=== PATIENT | male | born 1955 | race Caucasian/White ===

== ENCOUNTER → 2023-12-05 13:51 | Outpatient (REF) | payer OTHER, SELFPAY ==
[2023-12-05 14:51] LABS: INR 2.83; PT 29.7 Sec (11.4-14.6)
== END ==
LOC: REG 13:51
PROVIDERS: ATTENDING PHYSICIAN Internal Medicine Cardiovascular Disease; FAMILY PHYSICIAN Physician Assistant
DX: Z95.2 Presence of prosthetic heart valve (principal)
CPT/HCPCS: 36415; 85610

== ENCOUNTER → 2024-01-03 08:50 | Outpatient (REF) | payer OTHER, SELFPAY ==
[2024-01-03 10:21] LABS: INR 3.85; PT 37.9 Sec (11.4-14.6)
== END ==
LOC: REG 08:50
PROVIDERS: ATTENDING PHYSICIAN Internal Medicine Cardiovascular Disease; FAMILY PHYSICIAN Physician Assistant
DX: Z95.2 Presence of prosthetic heart valve (principal)
CPT/HCPCS: 36415; 85610

== ENCOUNTER → 2024-01-11 10:45 | Outpatient (REF) | payer OTHER, SELFPAY ==
[2024-01-11 11:34] LABS: INR 4.44; PT 43.1 Sec (11.4-14.6)
== END ==
LOC: REG 10:45
PROVIDERS: ATTENDING PHYSICIAN Internal Medicine Cardiovascular Disease; FAMILY PHYSICIAN Physician Assistant
DX: Z95.2 Presence of prosthetic heart valve (principal)
CPT/HCPCS: 36415; 85610

== ENCOUNTER → 2024-01-19 08:28 | Outpatient (REF) | payer OTHER, SELFPAY ==
[2024-01-19 09:35] LABS: INR 4.11; PT 40.5 Sec (11.4-14.6)
== END ==
LOC: REG 08:28
PROVIDERS: ATTENDING PHYSICIAN Internal Medicine Cardiovascular Disease; FAMILY PHYSICIAN Physician Assistant
DX: Z95.2 Presence of prosthetic heart valve (principal)
CPT/HCPCS: 36415; 85610

== ENCOUNTER → 2024-01-26 11:00 | Outpatient (REF) | payer OTHER, SELFPAY ==
[2024-01-26 11:37] LABS: INR 4.07; PT 40.3 Sec (11.4-14.6)
== END ==
LOC: REG 11:00
PROVIDERS: ATTENDING PHYSICIAN Internal Medicine Cardiovascular Disease; FAMILY PHYSICIAN Physician Assistant
DX: Z95.2 Presence of prosthetic heart valve (principal)
CPT/HCPCS: 36415; 85610

== ENCOUNTER → 2024-02-02 09:16 | Outpatient (REF) | payer OTHER, SELFPAY ==
[2024-02-02 12:14] LABS: INR 2.67; PT 28.8 Sec (11.4-14.6)
== END ==
LOC: REG 09:16
PROVIDERS: ATTENDING PHYSICIAN Internal Medicine Cardiovascular Disease; FAMILY PHYSICIAN Physician Assistant
DX: Z95.2 Presence of prosthetic heart valve (principal)
CPT/HCPCS: 36415; 85610

== ENCOUNTER → 2024-02-13 10:49 | Outpatient (REF) | payer OTHER, SELFPAY ==
[2024-02-13 12:34] LABS: INR 1.87; PT 21.3 Sec (11.4-14.6)
== END ==
LOC: REG 10:49
PROVIDERS: ATTENDING PHYSICIAN Internal Medicine Cardiovascular Disease; FAMILY PHYSICIAN Physician Assistant
DX: Z95.2 Presence of prosthetic heart valve (principal)
CPT/HCPCS: 36415; 85610

== ENCOUNTER → 2024-02-22 10:28 | Outpatient (REF) | payer OTHER, SELFPAY ==
[2024-02-22 11:56] LABS: INR 3.86; PT 38.5 Sec (11.4-14.6)
== END ==
LOC: REG 10:28
PROVIDERS: ATTENDING PHYSICIAN Internal Medicine Cardiovascular Disease; FAMILY PHYSICIAN Physician Assistant
DX: Z95.2 Presence of prosthetic heart valve (principal)
CPT/HCPCS: 36415; 85610

== ENCOUNTER → 2024-03-05 12:41 | Outpatient (REF) | payer OTHER, SELFPAY ==
[2024-03-05 13:54] LABS: INR 2.76; PT 29.1 Sec (11.4-14.6)
== END ==
LOC: REG 12:41
PROVIDERS: ATTENDING PHYSICIAN Internal Medicine Cardiovascular Disease
DX: Z95.2 Presence of prosthetic heart valve (principal); Z79.01 Long term (current) use of anticoagulants
CPT/HCPCS: 36415; 85610

== ENCOUNTER → 2024-03-16 09:35 | Outpatient (REF) | payer OTHER, SELFPAY ==
[2024-03-16 11:11] LABS: INR 4.07; PT 39.6 Sec (11.4-14.6)
== END ==
LOC: REG 09:35
PROVIDERS: ATTENDING PHYSICIAN Internal Medicine Cardiovascular Disease; FAMILY PHYSICIAN Physician Assistant
DX: Z95.2 Presence of prosthetic heart valve (principal)
CPT/HCPCS: 36415; 85610

== ENCOUNTER → 2024-03-22 08:34 | Outpatient (REF) | payer OTHER, SELFPAY ==
[2024-03-22 10:24] LABS: INR 2.38; PT 25.9 Sec (11.4-14.6)
== END ==
LOC: REG 08:34
PROVIDERS: ATTENDING PHYSICIAN Internal Medicine Cardiovascular Disease; FAMILY PHYSICIAN Physician Assistant
DX: Z95.2 Presence of prosthetic heart valve (principal)
CPT/HCPCS: 36415; 85610

== ENCOUNTER → 2024-03-29 11:43 | Outpatient (REF) | payer OTHER, SELFPAY ==
[2024-03-29 12:20] LABS: INR 3.32; PT 34.2 Sec (11.4-14.6)
== END ==
LOC: REG 11:43
PROVIDERS: ATTENDING PHYSICIAN Internal Medicine Cardiovascular Disease; FAMILY PHYSICIAN Physician Assistant
DX: Z95.2 Presence of prosthetic heart valve (principal)
CPT/HCPCS: 36415; 85610

== ENCOUNTER → 2024-04-09 10:39 | Outpatient (REF) | payer OTHER, SELFPAY ==
[2024-04-09 13:23] LABS: INR 2.83; PT 29.7 Sec (11.4-14.6)
== END ==
LOC: REG 10:39
PROVIDERS: ATTENDING PHYSICIAN Internal Medicine Cardiovascular Disease; FAMILY PHYSICIAN Physician Assistant
DX: Z95.2 Presence of prosthetic heart valve (principal)
CPT/HCPCS: 36415; 85610

== ENCOUNTER → 2024-04-23 13:23 | Outpatient (REF) | payer OTHER, SELFPAY ==
[2024-04-23 13:53] LABS: INR 3.09; PT 31.8 Sec (11.4-14.6)
== END ==
LOC: REG 13:23
PROVIDERS: ATTENDING PHYSICIAN Internal Medicine Cardiovascular Disease; FAMILY PHYSICIAN Physician Assistant
DX: Z95.2 Presence of prosthetic heart valve (principal)
CPT/HCPCS: 36415; 85610

== ENCOUNTER → 2024-05-08 09:39 | Outpatient (REF) | payer OTHER, SELFPAY ==
[2024-05-08 10:54] LABS: INR 2.73; PT 28.8 Sec (11.4-14.6)
== END ==
LOC: REG 09:39
PROVIDERS: ATTENDING PHYSICIAN Internal Medicine Cardiovascular Disease; FAMILY PHYSICIAN Physician Assistant
DX: Z95.2 Presence of prosthetic heart valve (principal)
CPT/HCPCS: 36415; 85610

== ENCOUNTER → 2024-06-05 09:43 | Outpatient (REF) | payer OTHER, SELFPAY ==
[2024-06-05 11:11] LABS: INR 1.76; PT 20.3 Sec (11.4-14.6)
== END ==
LOC: REG 09:43
PROVIDERS: ATTENDING PHYSICIAN Internal Medicine Cardiovascular Disease; FAMILY PHYSICIAN Physician Assistant
DX: Z95.2 Presence of prosthetic heart valve (principal)
CPT/HCPCS: 36415; 85610

== ENCOUNTER → 2024-06-15 08:40 | Outpatient (REF) | payer OTHER, SELFPAY ==
[2024-06-15 10:00] LABS: INR 2.98; PT 30.9 Sec (11.4-14.6)
== END ==
LOC: REG 08:40
PROVIDERS: ATTENDING PHYSICIAN Internal Medicine Cardiovascular Disease
DX: Z95.2 Presence of prosthetic heart valve (principal)
CPT/HCPCS: 36415; 85610

== ENCOUNTER → 2024-06-22 13:10 | Outpatient (REF) | payer OTHER, SELFPAY ==
[2024-06-22 14:17] LABS: INR 4.24; PT 40.9 Sec (11.4-14.6)
== END ==
LOC: REG 13:10
PROVIDERS: ATTENDING PHYSICIAN Internal Medicine Cardiovascular Disease; FAMILY PHYSICIAN Physician Assistant
DX: Z95.2 Presence of prosthetic heart valve (principal)
CPT/HCPCS: 36415; 85610

== ENCOUNTER → 2024-06-29 10:08 | Outpatient (REF) | payer OTHER, SELFPAY ==
[2024-06-29 10:40] LABS: INR 4.27; PT 41.1 Sec (11.4-14.6)
== END ==
LOC: REG 10:08
PROVIDERS: ATTENDING PHYSICIAN Internal Medicine Cardiovascular Disease; FAMILY PHYSICIAN Physician Assistant
DX: Z95.2 Presence of prosthetic heart valve (principal)
CPT/HCPCS: 36415; 85610

== ENCOUNTER → 2024-07-05 13:36 | Outpatient (REF) | payer OTHER, SELFPAY ==
[2024-07-05 14:31] LABS: INR 3.25; PT 33.6 Sec (11.4-14.6)
== END ==
LOC: REG 13:36
PROVIDERS: ATTENDING PHYSICIAN Internal Medicine Cardiovascular Disease
DX: Z95.2 Presence of prosthetic heart valve (principal)
CPT/HCPCS: 36415; 85610

== ENCOUNTER → 2024-07-13 08:27 | Outpatient (REF) | payer OTHER, SELFPAY ==
[2024-07-13 09:22] LABS: INR 4.23; PT 40.8 Sec (11.4-14.6)
== END ==
LOC: REG 08:27
PROVIDERS: ATTENDING PHYSICIAN Internal Medicine Cardiovascular Disease; FAMILY PHYSICIAN Physician Assistant
DX: Z95.2 Presence of prosthetic heart valve (principal)
CPT/HCPCS: 36415; 85610

== ENCOUNTER → 2024-07-23 09:37 | Outpatient (REF) | payer OTHER, SELFPAY ==
[2024-07-23 10:22] LABS: INR 2.89; PT 30.2 Sec (11.4-14.6)
== END ==
LOC: REG 09:37
PROVIDERS: ATTENDING PHYSICIAN Internal Medicine Cardiovascular Disease; FAMILY PHYSICIAN Physician Assistant
DX: Z95.2 Presence of prosthetic heart valve (principal)
CPT/HCPCS: 36415; 85610

== ENCOUNTER → 2024-07-30 09:14 | Outpatient (REF) | payer OTHER, SELFPAY ==
[2024-07-30 10:22] LABS: INR 4.06; PT 39.5 Sec (11.4-14.6)
== END ==
LOC: REG 09:14
PROVIDERS: ATTENDING PHYSICIAN Internal Medicine Cardiovascular Disease; FAMILY PHYSICIAN Physician Assistant
DX: Z95.2 Presence of prosthetic heart valve (principal)
CPT/HCPCS: 36415; 85610

== ENCOUNTER → 2024-08-03 08:49 | Outpatient (REF) | payer OTHER, SELFPAY ==
[2024-08-03 09:44] LABS: INR 4.54; PT 43.2 Sec (11.4-14.6)
== END ==
LOC: REG 08:49
PROVIDERS: ATTENDING PHYSICIAN Internal Medicine Cardiovascular Disease; FAMILY PHYSICIAN Physician Assistant
DX: Z95.2 Presence of prosthetic heart valve (principal)
CPT/HCPCS: 36415; 85610

== ENCOUNTER → 2024-08-11 09:26 | Outpatient (REF) | payer OTHER, SELFPAY ==
[2024-08-11 10:44] LABS: PT 33.6 Sec (11.4-14.6)
== END ==
LOC: REG 09:26
PROVIDERS: ATTENDING PHYSICIAN Internal Medicine Cardiovascular Disease; FAMILY PHYSICIAN Physician Assistant
DX: Z95.2 Presence of prosthetic heart valve (principal)
CPT/HCPCS: 36415; 85610

== ENCOUNTER → 2024-08-17 09:18 | Outpatient (REF) | payer OTHER, SELFPAY ==
[2024-08-17 10:20] LABS: INR 2.36; PT 25.7 Sec (11.4-14.6)
== END ==
LOC: REG 09:18
PROVIDERS: ATTENDING PHYSICIAN Internal Medicine Cardiovascular Disease; FAMILY PHYSICIAN Physician Assistant
DX: Z95.2 Presence of prosthetic heart valve (principal)
CPT/HCPCS: 36415; 85610

== ENCOUNTER → 2024-08-25 08:45 | Outpatient (REF) | payer OTHER, SELFPAY | LOC: REG 08:45 | PROVIDERS: ATTENDING PHYSICIAN Internal Medicine Cardiovascular Disease; FAMILY PHYSICIAN Physician Assistant | DX: Z95.2 Presence of prosthetic heart valve (principal) | CPT/HCPCS: 36415; 85610 ==

== ENCOUNTER → 2024-09-05 09:00 | Outpatient (REF) | payer OTHER, SELFPAY ==
[2024-09-05 11:05] LABS: INR 2.34; PT 26.1 Sec (11.4-14.6)
== END ==
LOC: REG 09:00
PROVIDERS: ATTENDING PHYSICIAN Internal Medicine Cardiovascular Disease
DX: Z95.2 Presence of prosthetic heart valve (principal)
CPT/HCPCS: 36415; 85610

== ENCOUNTER → 2024-09-13 10:02 | Outpatient (REF) | payer OTHER, SELFPAY ==
[2024-09-13 12:44] LABS: INR 2.45
== END ==
LOC: REG 10:02
PROVIDERS: ATTENDING PHYSICIAN Internal Medicine Cardiovascular Disease; FAMILY PHYSICIAN Physician Assistant
DX: Z95.2 Presence of prosthetic heart valve (principal)
CPT/HCPCS: 36415; 85610

== ENCOUNTER → 2024-09-24 10:53 | Outpatient (REF) | payer OTHER, SELFPAY ==
[2024-09-24 12:45] LABS: INR 2.81; PT 29.5 Sec (11.4-14.6)
== END ==
LOC: REG 10:53
PROVIDERS: ATTENDING PHYSICIAN Internal Medicine Cardiovascular Disease; FAMILY PHYSICIAN Physician Assistant
DX: Z95.2 Presence of prosthetic heart valve (principal)
CPT/HCPCS: 36415; 85610

== ENCOUNTER → 2024-10-03 10:19 | Outpatient (REF) | payer OTHER, SELFPAY ==
[2024-10-03 11:29] LABS: INR 3.05; PT 31.9 Sec (11.4-14.6)
== END ==
LOC: REG 10:19
PROVIDERS: ATTENDING PHYSICIAN Internal Medicine Cardiovascular Disease; FAMILY PHYSICIAN Physician Assistant
DX: Z95.2 Presence of prosthetic heart valve (principal)
CPT/HCPCS: 36415; 85610

== ENCOUNTER → 2024-10-12 10:43 | Outpatient (REF) | payer OTHER, SELFPAY ==
[2024-10-12 12:07] LABS: INR 2.73; PT 28.9 Sec (11.4-14.6)
== END ==
LOC: REG 10:43
PROVIDERS: ATTENDING PHYSICIAN Student in an Organized Health Care Education/Training Program
DX: Z95.2 Presence of prosthetic heart valve (principal)
CPT/HCPCS: 36415; 85610

== ENCOUNTER → 2024-10-20 09:25 | Outpatient (REF) | payer OTHER, SELFPAY ==
[2024-10-20 10:52] LABS: INR 3.39; PT 34.5 Sec (11.4-14.6)
== END ==
LOC: REG 09:25
PROVIDERS: ATTENDING PHYSICIAN Student in an Organized Health Care Education/Training Program; FAMILY PHYSICIAN Physician Assistant
DX: Z79.01 Long term (current) use of anticoagulants (principal)
CPT/HCPCS: 36415; 85610

== ENCOUNTER → 2024-10-26 13:02 | Outpatient (REF) | payer OTHER, SELFPAY ==
[2024-10-26 15:09] LABS: INR 2.37; PT 25.9 Sec (11.4-14.6)
== END ==
LOC: REG 13:02
PROVIDERS: ATTENDING PHYSICIAN Student in an Organized Health Care Education/Training Program; FAMILY PHYSICIAN Physician Assistant
DX: Z79.01 Long term (current) use of anticoagulants (principal)
CPT/HCPCS: 36415; 85610

== ENCOUNTER → 2024-11-02 12:00 | Outpatient (REF) | payer OTHER, SELFPAY ==
[2024-11-02 13:04] LABS: % Basophils 0.9 % (0-2); % Eosinophils 2.6 % (0-6); % Immature Granulocytes 0.3 % (0-0.5); % Lymphocytes 22.2 % (20.5-51.1); % Monocytes 6.9 % (1.7-9.3); % Neutrophils 67.1 % (42.2-75.2); Absolute Basophils 0.1 10^3/uL (0-0.2); Absolute Eosinophils 0.2 10^3/uL (0-0.7); Absolute Lymphocytes 1.3 10^3/uL (1.2-3.4); Absolute Monocytes 0.4 10^3/uL (0.1-0.6); Absolute Neutrophils 3.9 10^3/uL (1.4-6.5); Hemoglobin 15.8 g/dL (13.0-18.0); Mean Corp Hgb Conc. 35.1 g/dL (33.0-37.0); Mean Corpuscular Hgb 31.7 pg (27.0-31.0); Mean Corpuscular Volume 90.4 fL (80.0-94.0); Mean Platelet Volume 9.6 fL (7.4-10.4); Nucleated Red Blood Cells % 0 % (-); Platelet Count 122 10^3/uL (130-400); Red Blood Cell Count 4.98 10^6/uL (4.70-6.10); White Blood Cell Count 5.8 10^3/uL (4.8-10.8)
[2024-11-02 13:07] LABS: INR 3.11; PT 31.9 Sec (11.4-14.6)
[2024-11-02 13:14] LABS: ALT (SGPT) 22 U/L (0-50); AST (SGOT) 23 U/L (17-59); Albumin 4.7 g/dl (3.5-5.0); Alkaline Phosphatase 57 U/L (38-126); Blood Urea Nitrogen 14 mg/dl (9-20); Calcium 9.4 mg/dl (8.4-10.2); Carbon Dioxide 28 mmol/L (22-30); Chloride 102 mmol/L (98-107); Glucose 204 mg/dl (70-99); Potassium 4.5 mmol/L (3.5-5.1); Sodium 141 mmol/L (135-145); Total Bilirubin 3.2 mg/dl (0.2-1.3); Total Protein 6.6 g/dl (6.3-8.2); eGFR > 60.00
[2024-11-02 13:50] LABS: PSA, Total - Screen 0.27 ng/ml (0.0-4.0)
[2024-11-02 14:05] LABS: Glycohemoglobin (HgbA1c) 6.1 % (4.0-5.6)
== END ==
LOC: REG 12:00
PROVIDERS: ATTENDING PHYSICIAN Student in an Organized Health Care Education/Training Program; FAMILY PHYSICIAN Physician Assistant
DX: Z95.2 Presence of prosthetic heart valve (principal); E11.9 Type 2 diabetes mellitus without complications; E78.5 Hyperlipidemia, unspecified; I10 Essential (primary) hypertension; G47.33 Obstructive sleep apnea (adult) (pediatric); E66.9 Obesity, unspecified; Z12.5 Encounter for screening for malignant neoplasm of prostate
CPT/HCPCS: 36415; 80053; 83036; 85025; 85610; G0103

== ENCOUNTER → 2024-11-03 10:14 | Outpatient (REF) | payer OTHER, SELFPAY ==
[2024-11-03 12:54] LABS: HDL Cholesterol 27 mg/dl; LDL Cholesterol, Calculated 38 mg/dl; Total Cholesterol 90 mg/dl (50-199); Triglyceride 129 mg/dl (10-149); Very Low Density Lipoprotein 25 mg/dl (0-30)
== END ==
LOC: REG 10:14
PROVIDERS: ATTENDING PHYSICIAN Physician Assistant
DX: E11.9 Type 2 diabetes mellitus without complications (principal); E78.5 Hyperlipidemia, unspecified; I10 Essential (primary) hypertension; G47.33 Obstructive sleep apnea (adult) (pediatric); E66.9 Obesity, unspecified; Z12.5 Encounter for screening for malignant neoplasm of prostate
CPT/HCPCS: 36415; 80061

== ENCOUNTER → 2024-12-18 11:27 | Outpatient (REF) | payer OTHER, SELFPAY ==
[2024-12-18 12:04] LABS: INR 2.33; PT 25.6 Sec (11.4-14.6)
== END ==
LOC: REG 11:27
PROVIDERS: ATTENDING PHYSICIAN Student in an Organized Health Care Education/Training Program
DX: Z95.2 Presence of prosthetic heart valve (principal)
CPT/HCPCS: 36415; 85610

== ENCOUNTER → 2024-12-25 11:51 | Outpatient (REF) | payer OTHER, SELFPAY ==
[2024-12-25 12:50] LABS: INR 3.51; PT 34.9 Sec (11.4-14.6)
== END ==
LOC: REG 11:51
PROVIDERS: ATTENDING PHYSICIAN Student in an Organized Health Care Education/Training Program
DX: Z95.2 Presence of prosthetic heart valve (principal)
CPT/HCPCS: 36415; 85610

== ENCOUNTER → 2025-01-15 11:34 | Outpatient (REF) | payer OTHER, SELFPAY ==
[2025-01-15 13:07] LABS: INR 3.62; PT 35.8 Sec (11.4-14.6)
== END ==
LOC: REG 11:34
PROVIDERS: ATTENDING PHYSICIAN Student in an Organized Health Care Education/Training Program; FAMILY PHYSICIAN Physician Assistant
DX: Z95.2 Presence of prosthetic heart valve (principal)
CPT/HCPCS: 36415; 85610

== ENCOUNTER → 2025-01-28 11:38 | Outpatient (REF) | payer OTHER, SELFPAY ==
[2025-01-28 12:51] LABS: PT 40.8 Sec (11.4-14.6)
== END ==
LOC: REG 11:38
PROVIDERS: ATTENDING PHYSICIAN Student in an Organized Health Care Education/Training Program; FAMILY PHYSICIAN Physician Assistant
DX: Z95.2 Presence of prosthetic heart valve (principal)
CPT/HCPCS: 36415; 85610

== ENCOUNTER → 2025-02-07 08:27 | Outpatient (REF) | payer OTHER, SELFPAY ==
[2025-02-07 10:19] LABS: INR 2.83; PT 30.1 Sec (11.4-14.6)
== END ==
LOC: REG 08:27
PROVIDERS: ATTENDING PHYSICIAN Student in an Organized Health Care Education/Training Program; FAMILY PHYSICIAN Physician Assistant
DX: Z95.2 Presence of prosthetic heart valve (principal)
CPT/HCPCS: 36415; 85610

== ENCOUNTER → 2025-02-16 10:58 | Outpatient (REF) | payer OTHER, SELFPAY ==
[2025-02-16 12:06] LABS: PT 37.9 Sec (11.4-14.6)
== END ==
LOC: REG 10:58
PROVIDERS: ATTENDING PHYSICIAN Student in an Organized Health Care Education/Training Program; FAMILY PHYSICIAN Physician Assistant
DX: Z95.2 Presence of prosthetic heart valve (principal)
CPT/HCPCS: 36415; 85610

== ENCOUNTER → 2025-02-26 08:49 | Outpatient (REF) | payer OTHER, SELFPAY ==
[2025-02-26 09:25] LABS: INR 3.78
== END ==
LOC: REG 08:49
PROVIDERS: ATTENDING PHYSICIAN Student in an Organized Health Care Education/Training Program
DX: Z95.2 Presence of prosthetic heart valve (principal)
CPT/HCPCS: 36415; 85610

== ENCOUNTER → 2025-03-09 08:28 | Outpatient (REF) | payer OTHER, SELFPAY ==
[2025-03-09 09:35] LABS: INR 2.75; PT 29.1 Sec (11.4-14.6)
== END ==
LOC: REG 08:28
PROVIDERS: ATTENDING PHYSICIAN Student in an Organized Health Care Education/Training Program; FAMILY PHYSICIAN Physician Assistant
DX: Z95.2 Presence of prosthetic heart valve (principal)
CPT/HCPCS: 36415; 85610

== ENCOUNTER → 2025-03-19 10:32 | Outpatient (REF) | payer OTHER, SELFPAY ==
[2025-03-19 11:58] LABS: INR 3.65
== END ==
LOC: REG 10:32
PROVIDERS: ATTENDING PHYSICIAN Student in an Organized Health Care Education/Training Program; FAMILY PHYSICIAN Physician Assistant
DX: Z95.2 Presence of prosthetic heart valve (principal)
CPT/HCPCS: 36415; 85610

== ENCOUNTER → 2025-03-25 09:02 | Outpatient (REF) | payer OTHER, SELFPAY ==
[2025-03-25 10:58] LABS: INR 1.51; PT 18.5 Sec (11.4-14.6)
== END ==
LOC: RCS 09:02
PROVIDERS: ATTENDING PHYSICIAN Student in an Organized Health Care Education/Training Program; FAMILY PHYSICIAN Physician Assistant
DX: Z95.2 Presence of prosthetic heart valve (principal)
CPT/HCPCS: 36415; 85610; 93306

== ENCOUNTER → 2025-04-02 09:36 | Outpatient (REF) | payer OTHER, SELFPAY ==
[2025-04-02 11:00] LABS: INR 3.07; PT 31.6 Sec (11.4-14.6)
== END ==
LOC: REG 09:36
PROVIDERS: ATTENDING PHYSICIAN Student in an Organized Health Care Education/Training Program; FAMILY PHYSICIAN Physician Assistant
DX: Z95.2 Presence of prosthetic heart valve (principal)
CPT/HCPCS: 36415; 85610

== ENCOUNTER → 2025-04-11 09:10 | Outpatient (REF) | payer OTHER, SELFPAY ==
[2025-04-11 10:32] LABS: INR 3.67; PT 36.2 Sec (11.4-14.6)
== END ==
LOC: REG 09:10
PROVIDERS: ATTENDING PHYSICIAN Student in an Organized Health Care Education/Training Program; FAMILY PHYSICIAN Physician Assistant
DX: Z95.2 Presence of prosthetic heart valve (principal)
CPT/HCPCS: 36415; 85610

== ENCOUNTER → 2025-04-17 11:01 | Outpatient (REF) | payer OTHER, SELFPAY ==
[2025-04-17 11:38] LABS: INR 2.88; PT 30.5 Sec (11.4-14.6)
== END ==
LOC: REG 11:01
PROVIDERS: ATTENDING PHYSICIAN Student in an Organized Health Care Education/Training Program; FAMILY PHYSICIAN Physician Assistant
DX: Z95.2 Presence of prosthetic heart valve (principal)
CPT/HCPCS: 36415; 85610

== ENCOUNTER → 2025-04-25 09:27 | Outpatient (REF) | payer OTHER, SELFPAY ==
[2025-04-25 10:29] LABS: INR 3.03; PT 31.8 Sec (11.4-14.6)
== END ==
LOC: REG 09:27
PROVIDERS: ATTENDING PHYSICIAN Student in an Organized Health Care Education/Training Program; FAMILY PHYSICIAN Physician Assistant
DX: Z95.2 Presence of prosthetic heart valve (principal)
CPT/HCPCS: 36415; 85610

== ENCOUNTER → 2025-04-30 09:01 | Outpatient (REF) | payer OTHER, SELFPAY ==
[2025-04-30 09:34] LABS: INR 2.79; PT 29.4 Sec (11.4-14.6)
== END ==
LOC: REG 09:01
PROVIDERS: ATTENDING PHYSICIAN Student in an Organized Health Care Education/Training Program; FAMILY PHYSICIAN Physician Assistant
DX: Z95.2 Presence of prosthetic heart valve (principal)
CPT/HCPCS: 36415; 85610

== ENCOUNTER → 2025-06-04 09:14 | Outpatient (REF) | payer OTHER, SELFPAY ==
[2025-06-04 09:52] LABS: INR 3.58; PT 35.5 Sec (11.4-14.6)
== END ==
LOC: REG 09:14
PROVIDERS: ATTENDING PHYSICIAN Student in an Organized Health Care Education/Training Program; FAMILY PHYSICIAN Physician Assistant
DX: Z95.2 Presence of prosthetic heart valve (principal)
CPT/HCPCS: 36415; 85610

== ENCOUNTER → 2025-06-26 09:15 | Outpatient (REF) | payer OTHER, SELFPAY ==
[2025-06-26 10:54] LABS: INR 2.74; PT 29.4 Sec (11.4-14.6)
== END ==
LOC: REG 09:15
PROVIDERS: ATTENDING PHYSICIAN Student in an Organized Health Care Education/Training Program; FAMILY PHYSICIAN Physician Assistant
DX: Z95.2 Presence of prosthetic heart valve (principal)
CPT/HCPCS: 36415; 85610

== ENCOUNTER → 2025-07-25 10:54 | Outpatient (REF) | payer OTHER, SELFPAY ==
[2025-07-25 11:40] LABS: INR 2.35; PT 26.2 Sec (11.4-14.6)
== END ==
LOC: REG 10:54
PROVIDERS: ATTENDING PHYSICIAN Student in an Organized Health Care Education/Training Program; FAMILY PHYSICIAN Physician Assistant
DX: Z95.2 Presence of prosthetic heart valve (principal)
CPT/HCPCS: 36415; 85610

== ENCOUNTER → 2025-08-01 09:35 | Outpatient (REF) | payer OTHER, SELFPAY ==
[2025-08-01 10:41] LABS: INR 3.04; PT 31.8 Sec (11.4-14.6)
== END ==
LOC: REG 09:35
PROVIDERS: ATTENDING PHYSICIAN Student in an Organized Health Care Education/Training Program; FAMILY PHYSICIAN Physician Assistant
DX: Z95.2 Presence of prosthetic heart valve (principal)
CPT/HCPCS: 36415; 85610

== ENCOUNTER → 2025-08-07 11:34 | Outpatient (REF) | payer OTHER, SELFPAY ==
[2025-08-07 12:20] LABS: INR 2.53; PT 27.7 Sec (11.4-14.6)
== END ==
LOC: REG 11:34
PROVIDERS: ATTENDING PHYSICIAN Student in an Organized Health Care Education/Training Program; FAMILY PHYSICIAN Physician Assistant
DX: Z95.2 Presence of prosthetic heart valve (principal)
CPT/HCPCS: 36415; 85610

== ENCOUNTER → 2025-08-15 13:41 | Outpatient (REF) | payer OTHER, SELFPAY ==
[2025-08-15 15:02] LABS: INR 3.17; PT 32.9 Sec (11.4-14.6)
[2025-08-15 15:03] LABS: APTT 37.1 Sec (23.4-35.0)
== END ==
LOC: REG 13:41
PROVIDERS: ATTENDING PHYSICIAN Student in an Organized Health Care Education/Training Program; FAMILY PHYSICIAN Physician Assistant
DX: Z95.2 Presence of prosthetic heart valve (principal)
CPT/HCPCS: 36415; 85610; 85730

== ENCOUNTER → 2025-08-28 08:44 | Outpatient (REF) | payer OTHER, SELFPAY ==
[2025-08-28 09:54] LABS: INR 3.62; PT 36.3 Sec (11.4-14.6)
== END ==
LOC: REG 08:44
PROVIDERS: ATTENDING PHYSICIAN Student in an Organized Health Care Education/Training Program; FAMILY PHYSICIAN Physician Assistant
DX: Z95.2 Presence of prosthetic heart valve (principal)
CPT/HCPCS: 36415; 85610

== ENCOUNTER → 2025-09-07 09:36 | Outpatient (REF) | payer OTHER, SELFPAY ==
[2025-09-07 10:44] LABS: INR 2.55; PT 27.5 Sec (11.4-14.6)
== END ==
LOC: REG 09:36
PROVIDERS: ATTENDING PHYSICIAN Student in an Organized Health Care Education/Training Program; FAMILY PHYSICIAN Physician Assistant
DX: Z95.2 Presence of prosthetic heart valve (principal)
CPT/HCPCS: 36415; 85610

== ENCOUNTER → 2025-09-30 08:49 | Outpatient (REF) | payer OTHER, SELFPAY ==
[2025-09-30 09:53] LABS: INR 3.98; PT 39.2 Sec (11.4-14.6)
[2025-09-30 09:54] LABS: APTT 41.5 Sec (23.4-35.0)
== END ==
LOC: REG 08:49
PROVIDERS: ATTENDING PHYSICIAN Student in an Organized Health Care Education/Training Program
DX: Z95.2 Presence of prosthetic heart valve (principal)
CPT/HCPCS: 36415; 85610; 85730

== ENCOUNTER → 2025-10-09 07:48 | Outpatient (REF) | payer OTHER, SELFPAY ==
[2025-10-09 08:53] LABS: Hematocrit 48.8 % (39.0-52.0); Hemoglobin 16.9 g/dL (13.0-18.0); Mean Corp Hgb Conc. 34.6 g/dL (33.0-37.0); Mean Corpuscular Volume 88.6 fL (80.0-94.0); Nucleated Red Blood Cells % 0 % (-); Platelet Count 141 10^3/uL (130-400); Red Cell Dist. Width 13.9 % (11.5-14.5)
[2025-10-09 09:13] LABS: INR 2.76; PT 28.8 Sec (11.4-14.6)
[2025-10-09 09:22] LABS: Microalb - Urine Creatinine 67.000 mg/dl
[2025-10-09 09:25] LABS: Microalbumin, Random Urine 1.0 mg/dl (0.6-1.7)
[2025-10-09 09:42] LABS: Glycohemoglobin (HgbA1c) 8.1 % (4.0-5.9)
[2025-10-09 10:41] LABS: ALT (SGPT) 36 U/L (0-50); AST (SGOT) 33 U/L (17-59); Albumin 4.9 g/dl (3.5-5.0); Alkaline Phosphatase 61 U/L (38-126); Blood Urea Nitrogen 16 mg/dl (9-20); Calcium 9.4 mg/dl (8.4-10.2); Carbon Dioxide 26 mmol/L (22-30); Chloride 103 mmol/L (98-107); Glucose 164 mg/dl (70-99); HDL Cholesterol 30 mg/dl; LDL Cholesterol, Calculated 51 mg/dl; Potassium 4.8 mmol/L (3.5-5.1); Sodium 138 mmol/L (135-145); Total Protein 7.1 g/dl (6.3-8.2); Very Low Density Lipoprotein 39 mg/dl (0-30); eGFR > 60.00
[2025-10-09 10:50] LABS: PSA, Total - Screen 0.47 ng/ml (0.0-4.0)
== END ==
LOC: REG 07:48
PROVIDERS: ATTENDING PHYSICIAN Student in an Organized Health Care Education/Training Program; FAMILY PHYSICIAN Physician Assistant
DX: Z95.2 Presence of prosthetic heart valve (principal); Z79.01 Long term (current) use of anticoagulants; E11.9 Type 2 diabetes mellitus without complications; E78.5 Hyperlipidemia, unspecified; G47.33 Obstructive sleep apnea (adult) (pediatric); Z12.5 Encounter for screening for malignant neoplasm of prostate
CPT/HCPCS: 36415; 80053; 80061; 82043; 82570; 83036; 84443; 85025; 85610; G0103

== ENCOUNTER → 2025-10-15 11:23 | Outpatient (REF) | payer OTHER, SELFPAY ==
[2025-10-15 12:26] LABS: INR 2.74; PT 29.2 Sec (11.4-14.6)
== END ==
LOC: REG 11:23
PROVIDERS: ATTENDING PHYSICIAN Student in an Organized Health Care Education/Training Program; FAMILY PHYSICIAN Physician Assistant
DX: Z95.2 Presence of prosthetic heart valve (principal)
CPT/HCPCS: 36415; 85610

== ENCOUNTER → 2025-10-23 10:15 | Outpatient (REF) | payer OTHER, SELFPAY ==
[2025-10-23 11:24] LABS: INR 2.62; PT 27.6 Sec (11.4-14.6)
== END ==
LOC: REG 10:15
PROVIDERS: ATTENDING PHYSICIAN Student in an Organized Health Care Education/Training Program; FAMILY PHYSICIAN Physician Assistant
DX: Z95.2 Presence of prosthetic heart valve (principal)
CPT/HCPCS: 36415; 85610